=== PATIENT | male | born 1975 ===

== ENCOUNTER 2018-01-29 20:44 | Emergency (ER) | payer SELFPAY ==
--- NOTE | 2018-01-29 21:08 | EDM.PDOC ---
ED HPI GENERAL MEDICAL PROBLEM - General Chief Complaint: General Stated Complaint: left hand injury from [employer] Time Seen by Provider: 01/29/18 20:52 Source of Information: Reports: Patient History Limitations: Reports: No Limitations - History of Present Illness INITIAL COMMENTS - FREE TEXT/NARRATIVE: Patient comes in from [email or web address] with complaint of pain/swelling of left hand after it was caught between two pieces of metal at work. No numbness or tingling. Has focal pain/mild swelling left palm between distal portions of 4th and 5th metacarpals. No loss of function. No other complaints. - Related Data Allergies Allergy/AdvReac Type Severity Reaction Status Date / Time No Known Allergies Allergy Verified 01/29/18 20:46 Home Meds: Home Meds . [No Known Home Meds] 01/29/18 [History] Past Medical History - History Comment History Comment: Patient denies signficant past medical history ED ROS GENERAL - Review of Systems Review Of Systems: ROS reveals no pertinent complaints other than HPI. ED EXAM, GENERAL - Physical Exam Exam: See Below Exam Limited By: No Limitations General Appearance: Alert, WD/WN, No Apparent Distress Eye Exam: Bilateral Eye: EOMI, PERRL Throat/Mouth: Normal Voice, No Airway Compromise Head: Atraumatic, Normocephalic Neck: Supple Respiratory/Chest: No Respiratory Distress Peripheral Pulses: 2+: Radial (L), Radial (R) Extremities: Normal Range of Motion, Normal Capillary Refill, Other (mild area of swelling and early bruising noted between distal ends of metacarpals 4&5. Some tenderness here. No tenderness with palpation of metacarpals. Fingers non- tender. Tendon function intact. NVI. Skin intact. ) Neurological: Alert, Oriented, Normal Cognition, Normal Gait, No Motor/Sensory Deficits Psychiatric: Normal Affect, Normal Mood Skin Exam: Warm, Dry, Intact Course - Orders/Labs/Meds Orders: Active Orders 24 hr Category Date Time Status Hand Comp Min 3V Lt [CR] Stat Exams 01/29/18 20:49 Taken - Radiology Interpretation Free Text/Narrative:: No obvious fractures noted on xray. - Re-Assessments/Exams Free Text/Narrative Re-Assessment/Exam: 01/29/18 21:29 No fractures identified. Suspect handcontusion with small hematoma at this time. Wrist/hand brace fitted for patient for protection of the area. To follow up as needed if symptoms do not improve within the next few days. Departure - Departure Time of Disposition: 21:06 Disposition: Home, Self-Care 01 Condition: Good Clinical Impression: Contusion of left hand Qualifiers: Encounter type: initial encounter Qualified Code(s): S60.222A - Contusion of left hand, initial encounter - Discharge Information Forms: ED Department Discharge Additional Instructions: OK to ice area for comfort. OK to take Ibuprofen or Tylenol for pain as bottle directs. This appears to be a broken blood vessel/bruise. No obvious fracture was seen. If the Radiologist feels there is anything that looks like a fracture when they review the xrays, then we will call you. Otherwise pain and swelling should improve over the next few days. If you do not notice any improvement, follow up for a recheck in 3 days. - My Orders Last 24 Hours: My Active Orders 01/29/18 20:49 Hand Comp Min 3V Lt [CR] Stat - Assessment/Plan Last 24 Hours: My Active Orders 01/29/18 20:49 Hand Comp Min 3V Lt [CR] Stat
== END 2018-01-29 21:15 | disposition home or self-care (01) ==
LOC: LL.ED 20:44
DX: S60.222A Contusion of left hand, initial encounter (principal); W23.0XXA Caught, crushed, jammed, or pinched between moving objects, initial encounter; Y99.0 Civilian activity done for income or pay
CPT/HCPCS: 73130-LT; 99283